=== PATIENT | female | born 1990 | race African-American/Black ===

== ENCOUNTER 2022-07-01 15:54 | Emergency (ER) | payer SELFPAY ==
[2022-07-01] MEDS ORDERED: Ventolin HFA Inhaler 60 PUFF INHALER ONE (16:32)
[2022-07-01] MEDS ORDERED: Ketorolac Tromethamine 30 MG/ML VIAL ONE (16:37)
[2022-07-01] MEDS ORDERED: cefTRIAXone\\ROCEPHIN 1 GM VIAL ONE (16:40)
[2022-07-01 16:49] LABS: #Basophils 0.1 10x3/uL (0.0-0.2); #Eosinphils 0.4 10x3/uL (0.0-0.5); #Monocytes 0.7 10x3/uL (0.0-1.1); #Neutrophils 5.5 10x3/uL (1.5-8.4); %Basophils 0.7 % (0.0-2.0); %Lymphocytes 18.4 % (18.0-47.0); %Monocytes 8.8 % (0.0-10.0); Hemoglobin 15.3 g/dL (12.0-15.5); Mean Corpuscular HGB CONC 32.6 g/dL (32.0-36.0); Mean Corpuscular Hemoglobin 28.6 pg (27.0-33.0); Mean Corpuscular Volume 87.7 fl (81.6-98.3); Mean Platelet Volume 9.5 fl (7.4-10.4); Platelet Count 342 10x3/uL (150-450); RBC Distribution Width 13.2 % (11.5-14.5); Red Blood Cell (RBC) Count 5.35 10x6/uL (3.90-5.03); White Blood Cell (WBC) Count 8.2 10x3/uL (3.5-10.5)
[2022-07-01 17:06] LABS: ALT (SGPT) 25 U/L (8-55); AST (SGOT) 22 U/L (5-34); Albumin 4.3 g/dL (3.5-5.0); Alkaline Phosphatase 99 U/L (40-110); Anion Gap 12 mmol/L (10-20); BUN (Urea Nitrogen) 10 mg/dL (7.0-18.7); Bilirubin, Total 0.4 mg/dL (0.2-1.2); Calc. Creatinine Clearance 0 mL/min (70-130); Calcium 9.5 mg/dL (7.8-10.44); Carbon Dioxide 18 mmol/L (22-29); Chloride 113 mmol/L (98-107); Estimated GFR 87; Globulin 2.9 g/dL (2.4-3.5); Glucose 95 mg/dL (70-105); Protein, Total 7.2 g/dL (6.0-8.3); Sodium 138 mmol/L (136-145)
[2022-07-01] MEDS ORDERED: Azithromycin 500 MG VIAL ONE (17:24)
[2022-07-01 18:30] LABS: Bilirubin Neg (Negative); Blood, Urine Negative (Negative); Clarity Clear (Clear); Glucose, Urine (Dipstick) Normal (Negative); Ketone, Urine 5 mg/dL (Negative); Leukocyte 25 (Negative); Nitrite Negative (Negative); Protein, Urine (Dipstick) 15 mg/dl (Neg-Trace); Urobilinogen Normal mg/dL (Less than 2)
[2022-07-01 18:49] LABS: RBC/HPF 0-3 HPF (0-3); WBC/HPF 0-3 HPF (0-3)
[2022-07-01 18:50] LABS: Bacteria/HPF 1+ HPF (None Seen); Mucous/LPF Rare LPF (<2+)
[2022-07-01 19:19] LABS: SARS-CoV-2 NAA Rapid Test Not Detected (NotDetected)
== END 2022-07-01 20:20 | disposition home or self-care (01) ==
LOC: CSHERS 15:54
DX: J45.901 Unspecified asthma with (acute) exacerbation (principal); H66.92 Otitis media, unspecified, left ear; B34.9 Viral infection, unspecified; Z20.822 Contact with and (suspected) exposure to COVID-19
CPT/HCPCS: 36415; 71045; 80053; 81003; 81015; 83605; 83880; 84484; 85025; 87040; 93005; 94664; 94760; 96361; 96365; 96375; J0456; J0696; J1885

== ENCOUNTER 2022-10-12 14:43 | Emergency (ER) | payer SELFPAY | END 2022-10-12 15:38 | disposition home or self-care (01) | LOC: CSHERS 14:43 | DX: U07.1 COVID-19 (principal) | CPT/HCPCS: 99283 ==

== ENCOUNTER 2023-01-16 15:18 | Emergency (ER) | payer SELFPAY ==
[2023-01-16] MEDS ORDERED: Ketorolac Tromethamine 30 MG/ML VIAL ONE (16:39)
== END 2023-01-16 18:49 | disposition home or self-care (01) ==
LOC: CSHERS 15:18
DX: S52.572A Other intraarticular fracture of lower end of left radius, initial encounter for closed fracture (principal); X50.1XXA Overexertion from prolonged static or awkward postures, initial encounter
CPT/HCPCS: 29105; 96372; J1885

== ENCOUNTER 2024-04-04 20:14 | Emergency (ER) | payer SELFPAY ==
[2024-04-04] MEDS ORDERED: Amoxicillin/Potassium Clav 875 MG TAB ONE (21:05)
[2024-04-04] MEDS ORDERED: HYDROcodone/Acetaminophen 5/325 mg Tablet ONE (21:05)
== END 2024-04-04 21:47 | disposition home or self-care (01) ==
LOC: CSHERS 20:14
DX: K12.2 Cellulitis and abscess of mouth (principal); F17.290 Nicotine dependence, other tobacco product, uncomplicated
CPT/HCPCS: 99283